=== PATIENT | female | born 1980 | race African-American/Black ===

== ENCOUNTER 2019-02-20 17:30 | Emergency (ER) | payer MEDICARE, MEDICAID ==
[2019-02-20] MEDS ORDERED: Colchicine 0.6 MG TAB ONE (18:41)
== END 2019-02-20 19:38 | disposition home or self-care (01) ==
LOC: ERS 17:30
DX: M10.9 Gout, unspecified (principal); I10 Essential (primary) hypertension; E11.9 Type 2 diabetes mellitus without complications; F31.9 Bipolar disorder, unspecified; Z79.899 Other long term (current) drug therapy
CPT/HCPCS: 99283

== ENCOUNTER 2019-02-28 08:59 | Emergency (ER) | payer MEDICARE, MEDICAID ==
[2019-02-28] MEDS ORDERED: Dexamethasone 4 MG TAB ONE (10:09)
== END 2019-02-28 10:23 | disposition home or self-care (01) ==
LOC: ERS 08:59
DX: R09.81 Nasal congestion (principal); F41.9 Anxiety disorder, unspecified; F31.9 Bipolar disorder, unspecified; F20.9 Schizophrenia, unspecified
CPT/HCPCS: 99283; J8540

== ENCOUNTER 2019-03-04 12:24 | Emergency (ER) | payer MEDICARE, MEDICAID ==
[2019-03-04] MEDS ORDERED: Ibuprofen 800 MG TAB ONE (13:23)
== END 2019-03-04 13:19 | disposition home or self-care (01) ==
LOC: ERS 12:24
DX: J02.9 Acute pharyngitis, unspecified (principal); F41.9 Anxiety disorder, unspecified; F31.9 Bipolar disorder, unspecified; F20.9 Schizophrenia, unspecified; E11.9 Type 2 diabetes mellitus without complications; I10 Essential (primary) hypertension
CPT/HCPCS: 87081; 87430; 99283

== ENCOUNTER 2019-03-08 03:16 | Emergency (ER) | payer MEDICARE, OTHER ==
[2019-03-08] MEDS ORDERED: Acetaminophen 500 MG TAB ONE (03:32)
[2019-03-08] MEDS ORDERED: Acetaminophen 325 MG/10.15 ML UDCUP ONE (03:34)
[2019-03-08] MEDS ORDERED: Benzocaine 20% Spray 60 ML CAN ONE (03:56)
== END 2019-03-08 04:00 | disposition home or self-care (01) ==
LOC: ERS 03:16
DX: J02.9 Acute pharyngitis, unspecified (principal); M10.9 Gout, unspecified; F31.9 Bipolar disorder, unspecified; F20.9 Schizophrenia, unspecified; F41.9 Anxiety disorder, unspecified; E11.9 Type 2 diabetes mellitus without complications; I10 Essential (primary) hypertension
CPT/HCPCS: 36416; 87081; 87430; 99283

== ENCOUNTER 2019-04-10 22:18 | Emergency (ER) | payer MEDICARE, OTHER | END 2019-04-11 01:22 | disposition home or self-care (01) | LOC: ERS 22:18 | DX: J39.1 Other abscess of pharynx (principal); H10.9 Unspecified conjunctivitis; E11.9 Type 2 diabetes mellitus without complications; I10 Essential (primary) hypertension; F31.9 Bipolar disorder, unspecified; F41.9 Anxiety disorder, unspecified; F20.9 Schizophrenia, unspecified | CPT/HCPCS: 99282 ==

== ENCOUNTER 2019-11-30 18:58 | Emergency (ER) | payer MEDICARE, OTHER ==
--- NOTE | 2019-11-30 19:46 | RAD ---
RADIOGRAPH CHEST 2 VIEWS: 11/30/19 HISTORY: 39-year-old female with cough. FINDINGS: There is no air space density, pulmonary edema, pleural effusion, pneumothorax, or cardiomegaly. IMPRESSION: No acute cardiopulmonary findings. jn [] POS: OFF
== END 2019-11-30 20:18 | disposition home or self-care (01) ==
LOC: ERS 18:58
DX: J06.9 Acute upper respiratory infection, unspecified (principal); M10.9 Gout, unspecified; E11.9 Type 2 diabetes mellitus without complications; I10 Essential (primary) hypertension; F41.9 Anxiety disorder, unspecified; F31.9 Bipolar disorder, unspecified; F20.9 Schizophrenia, unspecified
CPT/HCPCS: 71046; 87804; 94640; J7620

== ENCOUNTER → 2020-02-15 | Outpatient (CLI) | payer OTHER | LOC: DTY/OP 13:00 | PROVIDERS: ATTEND Specialist | DX: Z01.818 Encounter for other preprocedural examination (principal); E66.01 Morbid (severe) obesity due to excess calories | CPT/HCPCS: 97802 ==